=== PATIENT | female | born 1990 | race Hispanic/Latino ===

== ENCOUNTER 2019-01-04 14:50 | Outpatient (CLI) | payer OTHER ==
--- NOTE | 2019-01-04 16:49 | ULT ---
Obstetric sonogram HISTORY: Second trimester gestation. evaluation. Evaluate cervical length. FINDINGS: Single intrauterine gestation in breech presentation. The cervix is closed and 4.4 cm. Grad e 0 placenta is anterior and to the right. The lower placental margin approaches the internal cervical os. Rounded echogenicity at the posterior aspect of the lower uterine cervix may represent a uterine contraction. Amniotic fluid is within normal limits. No gross intracranial abnormalities. spine and kidneys are intact as visualized. Three-vessel cord shows a normal insertion. Four-chamber heart motion at 147 bpm. Measurements are as follows: Biparietal diameter 20 weeks 2 days. Head circumference 20 weeks 1 day. Abdominal circumference 20 weeks 3 days. Femur length 20 weeks 0 days. Hadlock 98 percentile. IMPRESSION: Single viable intrauterine gestation. Estimated gestational age based on today's sonogram 20 weeks 2 days. Low-lying placenta. Probable uterine contraction posteriorly at the lower uterine segment. Please consider sonographic follow-up to evaluate for placental regression from the internal os.
== END 2019-01-04 14:51 | disposition home or self-care (01) ==
LOC: BICULT 14:50
PROVIDERS: ATTEND Family Medicine
DX: Z34.02 Encounter for supervision of normal first pregnancy, second trimester (principal); Z3A.20 20 weeks gestation of pregnancy
CPT/HCPCS: 76805

== ENCOUNTER 2019-05-23 19:30 | Inpatient (IN) | payer MEDICAID, OTHER, SELFPAY ==
[2019-05-23] MEDS ORDERED: hydrALAZINE 20 MG/ML VIAL SLOW IVP PRN (20:46)
[2019-05-23] MEDS ORDERED: Carboprost 250 MCG/ML AMP IM PRN (20:46)
[2019-05-23] MEDS ORDERED: NS / Oxytocin 40 units/1000ml 1,000 ML IV PRN (20:46)
[2019-05-23] MEDS ORDERED: Methylergonovine 0.2 MG/ML VIAL IM PRN (20:46)
[2019-05-23] MEDS ORDERED: Misoprostol 200 MCG TAB PR PRN (20:46)
[2019-05-23] MEDS ORDERED: Lidocaine 1% (PF) 30 ML VIAL SC PRN (20:46)
[2019-05-23] MEDS ORDERED: HYDROcodone/Acetaminophen 5/325 mg Tablet PO PRN (20:46)
[2019-05-23] MEDS ORDERED: Ibuprofen 800 MG TAB PO PRN (20:46)
[2019-05-23] MEDS ORDERED: Butorphanol Tartrate 1 MG/ML VIAL SLOW IVP PRN (20:46)
[2019-05-23] MEDS ORDERED: Diphenoxylate HCl/Atropine Tablet PO PRN (20:46)
[2019-05-23] MEDS ORDERED: Promethazine HCl 25 MG/ML VIAL IM PRN (20:46)
[2019-05-23] MEDS ORDERED: Ondansetron PF 4 MG/2 ML Vial IVP PRN (20:46)
[2019-05-23 20:57] VITALS: BMI 38.0
[2019-05-23] MEDS: Lactated Ringer's 1,000 ML IV SCH (21:05)
[2019-05-23 21:11] LABS: Hemoglobin 11.9 g/dL (12.0-16.0); Mean Corpuscular HGB CONC 32.8 g/dL (32.0-36.0); Mean Corpuscular Hemoglobin 29.2 pg (27.0-31.0); Mean Corpuscular Volume 89.3 fL (78.0-98.0); Platelet Count 305 thou/uL (130-400); RBC Distribution Width 12.2 % (11.5-14.5); Red Blood Cell (RBC) Count 4.07 mill/uL (4.20-5.40); White Blood Cell (WBC) Count 11.3 thou/uL (4.8-10.8)
[2019-05-23] MEDS ORDERED: NS w/ Oxytocin 10 units 500 ML IV SCH ×2 (21:15)
[2019-05-23] MEDS ORDERED: Acetaminophen 500 MG TAB PO PRN (21:24)
[2019-05-23] MEDS: Misoprostol 100 MCG TAB PO SCH (21:45)
[2019-05-23 21:51] LABS: Syphilis Antibody Nonreactive (Nonreactive); Syphilis Antibody Index 0.08 S/CO (<1.00 Non-Reactive)
[2019-05-23] MEDS: guaiFENesin/DM ER PO SCH (22:06)
[2019-05-24 00:28] LABS: HBSAg Index 0.14 S/CO (0-0.99); Hep B Surf Ag Non-Reactive S/CO (NonReactive)
[2019-05-24] MEDS: Misoprostol 100 MCG TAB PO SCH ×3 (04:05→12:05)
[2019-05-24] MEDS: Lactated Ringer's 1,000 ML IV SCH (05:15)
[2019-05-24] MEDS ORDERED: Bicitra 30 ML UDCUP ONE (07:00)
[2019-05-24] MEDS ORDERED: MORPHINE 5 MG/10 ML PF VIAL ONE (07:31)
[2019-05-24] MEDS ORDERED: Ondansetron PF 4 MG/2 ML Vial ONE ×2 (07:31→15:59)
[2019-05-24] MEDS ORDERED: Oxytocin 10 UNITS/ML VIAL ONE ×3 (07:31→07:56)
[2019-05-24] MEDS ORDERED: Ondansetron HCl/PF 4 MG/2 ML Vial IVP PRN (09:51)
[2019-05-24] MEDS ORDERED: Promethazine HCl 25 MG/ML VIAL IM PRN ×2 (09:51→09:52)
[2019-05-24] MEDS ORDERED: Promethazine HCl 25 MG/ML VIAL SLOW IVP PRN (09:51)
[2019-05-24] MEDS ORDERED: Ondansetron PF 4 MG/2 ML Vial IVP PRN ×2 (09:52→10:16)
[2019-05-24] MEDS ORDERED: Naloxone HCl 0.4 mg/ml Vial IVP PRN ×2 (09:52)
[2019-05-24] MEDS ORDERED: diphenhydrAMINE 50 MG/ML VIAL IVP PRN (09:52)
[2019-05-24] MEDS ORDERED: Promethazine HCl 25 MG SUPP PR PRN (09:52)
[2019-05-24] MEDS ORDERED: Naloxone HCl 0.4 mg/ml Vial IV PRN (09:52)
[2019-05-24] MEDS ORDERED: Communication Order-Pharmacy FS SCH (10:00)
[2019-05-24] MEDS ORDERED: Simethicone Chewable 80 MG TAB PO PRN (10:16)
[2019-05-24] MEDS ORDERED: NS / Oxytocin 40 units/1000ml 1,000 ML IV SCH (10:16)
[2019-05-24] MEDS ORDERED: diphenhydrAMINE 25 MG CAP PO PRN (10:16)
[2019-05-24] MEDS ORDERED: Adacel (T-DAP) 0.5 ML SYRINGE IM ONE (10:16)
[2019-05-24] MEDS ORDERED: hydrALAZINE 20 MG/ML VIAL SLOW IVP PRN (10:16)
[2019-05-24] MEDS ORDERED: Lanolin Ointment 7 GM TUBE TOP PRN (10:16)
[2019-05-24] MEDS ORDERED: Docusate Calcium (SURFAK) 240 MG CAP PO SCH (11:00)
[2019-05-24] MEDS ORDERED: Ferrous Sulfate 325 MG TAB PO SCH (11:00)
[2019-05-24] MEDS ORDERED: Prenatal Vitamin 1 TAB PO SCH (11:00)
[2019-05-24] MEDS: Ketorolac Tromethamine 30 MG/ML VIAL IVP PRN ×2 (11:28→18:55)
[2019-05-24] MEDS: Ferrous Sulfate 325 MG TAB PO SCH (12:07)
[2019-05-24] MEDS: guaiFENesin/DM ER PO SCH (12:08)
--- NOTE | 2019-05-24 12:31 | OP ---
DATE OF PROCEDURE: 05/24/2019 RESIDENT SURGEON: Yeni Lopez DO PROCEDURE PERFORMED: Primary low-transverse section. PREOPERATIVE DIAGNOSES: 1. Term intrauterine . 2. Nonreassuring status. POSTOPERATIVE DIAGNOSES: 1. Term intrauterine , delivered. 2. Nonreassuring status. ANESTHESIA: Spinal. INDICATIONS: This is a 29-year-old, G1, P0, 39 and 6 weeks gestation, who presented to Labor and Delivery for scheduled induction. The patient had nonreassuring heart tones on several occasions. A section was called. PROCEDURE IN DETAIL: After risks, benefits, and alternatives were explained to the patient, she gave informed consent. Preoperative antibiotics included cefazolin 2 g IV. The patient was taken to the operating room and spinal anesthesia was initiated. She was placed in supine position with left tilt, prepped and draped in the usual sterile fashion. A Pfannenstiel incision was made with a scalpel and carried down to the level of fascia, which was sharply nicked. The fascial cut was extended bilaterally with Parr scissors. Inferior and superior edges of the cut fascial edges were elevated with Usha clamps and underlying rectus muscles were sharply and bluntly dissected free. The recti were divided digitally and retracted manually. The peritoneum was entered bluntly and retracted manually. Bladder blade was placed. A low transverse score was made with a scalpel and the uterus was entered in the midline with a scalpel. Allis clamps used to rupture and clear fluid was seen. Hysterotomy was extended manually. Infant was noted to be vertex and was easily delivered by fundal pressure. Mouth and nares were bulb suctioned. Cord was clamped and cut and grossly normal male was handed to awaiting nurse. Cord blood was obtained. Placenta was manually extracted and found to be intact with 3-vessel cord and sent for pathology. The uterus was externalized and endometrium was curetted with a dry lap. The bladder blade was placed and the uterus was closed with a running locking #1 Monocryl, followed by several [id number] stitches with an imbricating layer using #1 Monocryl in a nonlocking fashion. Following this, hemostasis was noted. The abdomen was irrigated with saline and suctioned free of clots. The uterus was internalized. The hysterotomy was again noted to be hemostatic. The peritoneum was closed using 2-0 Vicryl. The fascia was closed with running nonlocking 0 PDS suture. Subcutaneous tissue was closed using 2-0 plain gut. Bleeders were cauterized. The skin was approximated with rasheed and pressure dressing was placed. All counts were correct. The patient tolerated the procedure well and was taken to the recovery room in stable condition. QUANTITATIVE BLOOD LOSS: 533 mL. COMPLICATIONS: None. SPECIMENS: Cord blood sent to lab for blood type. Placenta sent for pathology. FINDINGS: Grossly normal male infant with Apgars pending at the time of dictation. Placenta intact with 3-vessel cord, sent for pathology. DRAINS: Mayen to gravity, draining clear urine. Job ID: [id number] [facility]
[2019-05-24] MEDS ORDERED: Sodium Chloride 0.9% 10 ML ONE ×2 (15:52→18:53)
[2019-05-24] MEDS: Docusate Calcium (SURFAK) 240 MG CAP PO SCH (21:14)
[2019-05-24] MEDS ORDERED: HYDROcodone/Acetaminophen 5/325 mg Tablet PO PRN (22:00)
[2019-05-25] MEDS ORDERED: Sodium Chloride 0.9% 10 ML ONE (00:33)
[2019-05-25] MEDS: Ketorolac Tromethamine 30 MG/ML VIAL IVP PRN (00:36)
[2019-05-25 05:54] LABS: Hemoglobin 9.9 g/dL (12.0-16.0); Mean Corpuscular HGB CONC 32.2 g/dL (32.0-36.0); Mean Corpuscular Hemoglobin 28.8 pg (27.0-31.0); Mean Corpuscular Volume 89.6 fL (78.0-98.0); Mean Platelet Volume 7.6 fL (7.4-10.4); Platelet Count 239 thou/uL (130-400); RBC Distribution Width 12.3 % (11.5-14.5); Red Blood Cell (RBC) Count 3.42 mill/uL (4.20-5.40); White Blood Cell (WBC) Count 12.1 thou/uL (4.8-10.8)
[2019-05-25] MEDS: Prenatal Vitamin 1 TAB PO SCH (08:55)
[2019-05-25] MEDS: Docusate Calcium (SURFAK) 240 MG CAP PO SCH ×2 (08:56→22:41)
[2019-05-25] MEDS: Ferrous Sulfate 325 MG TAB PO SCH ×2 (08:56→16:13)
[2019-05-25] MEDS: HYDROcodone/Acetaminophen 5/325 mg Tablet PO PRN ×3 (08:56→20:11)
[2019-05-25] MEDS: Ibuprofen 800 MG TAB PO SCH ×2 (14:08→22:41)
[2019-05-26] MEDS: Ibuprofen 800 MG TAB PO SCH ×3 (06:18→20:53)
[2019-05-26] MEDS: Prenatal Vitamin 1 TAB PO SCH (08:13)
[2019-05-26] MEDS: Ferrous Sulfate 325 MG TAB PO SCH ×2 (08:13→16:53)
[2019-05-26] MEDS: Docusate Calcium (SURFAK) 240 MG CAP PO SCH ×2 (08:13→20:54)
[2019-05-26] MEDS: HYDROcodone/Acetaminophen 5/325 mg Tablet PO PRN (08:14)
[2019-05-27] MEDS: Ibuprofen 800 MG TAB PO SCH ×2 (06:44→13:57)
[2019-05-27] MEDS: Ferrous Sulfate 325 MG TAB PO SCH ×2 (08:41→17:31)
[2019-05-27] MEDS: Prenatal Vitamin 1 TAB PO SCH (08:41)
[2019-05-27] MEDS: Docusate Calcium (SURFAK) 240 MG CAP PO SCH (08:41)
[2019-05-27 16:03] VITALS: BP 123/65; TEMP 97.8
== END 2019-05-27 18:30 | disposition home or self-care (01) | DRG 788 ==
LOC: L&D 20:13 → 3SW 05-24 11:15
PROVIDERS: ADMIT Family Medicine; ATTEND Family Medicine
PROC: 10D00Z1 Extraction of Products of Conception, Low, Open Approach (ICD-10-PCS; principal; 2019-05-24)
DX: O76 Abnormality in fetal heart rate and rhythm complicating labor and delivery (principal); Z3A.39 39 weeks gestation of pregnancy; Z37.0 Single live birth
CPT/HCPCS: 36415; 51702; 76815; 85027; 86780; 86850; 86900; 86901; 87340; 88307; J0690; J1885; J2274; J2405; J2590